=== PATIENT | male | born 1990 | race Caucasian/White ===

== ENCOUNTER 2022-04-18 14:29 | Observation (INO) ==
[2022-04-18] MEDS ORDERED: Ketorolac 30 MG/ML VIAL IVP ONE (15:00)
[2022-04-18] MEDS ORDERED: 0.9 % Sodium Chloride 1,000 ML IVC ONE (15:00)
[2022-04-18] MEDS ORDERED: Ondansetron 4 MG/2 ML VIAL IVP ONE (15:00)
[2022-04-18 15:25] LABS: Bilirubin,Urine Negative (Negative); Blood,Urine Trace (Negative); Clarity,Urine Clear (Clear); Color,Urine Colorless (Yellow); Glucose,Urine (UA) Normal (Normal); Ketones,Urine Trace mg/dL (Negative); Leukocyte Esterase,Urine Trace (Negative); Nitrite,Urine Negative (Negative); PH,Urine 6.5 pH Units (5.0-8.0); Protein,Urine Negative (Neg-Trace); RBC,Urine 0-3 per hpf (0-3); Urobilinogen,Urine Normal (Normal); WBC,Urine 0-3 per hpf (0-3)
[2022-04-18 15:34] LABS: Basophils % 0.3 %; Eosinophils % 0.1 %; Hematocrit 45.6 % (37.5-50.1); Hemoglobin 15.8 g/dL (12.9-16.9); Immature Granulocytes % 0.3 % (0-4); Lymphocytes # 1.4 K/mcL (0.6-4.6); Lymphocytes % 13.1 %; Mean Corpuscular HGB Conc 34.6 g/dL (31.6-35.5); Mean Corpuscular Hemoglobin 30.3 pg (28.0-33.3); Mean Corpuscular Volume 87.5 fL (83.0-100.0); Mean Platelet Volume 9.5 fL (9.4-12.4); Monocytes # 0.8 K/mcL (0.0-1.3); Monocytes % 7.7 %; Neutrophils # 8.5 K/mcL (1.6-8.9); Platelet Count 289 K/mcL (140-400); Red Blood Count 5.21 M/mcL (4.19-5.50); Red Cell Distribution Width 13.1 % (11.5-14.5); Segmented Neutrophils % 78.5 %; White Blood Count 10.8 K/mcL (4.3-11.1)
[2022-04-18 15:45] LABS: Alanine Aminotransferase 69 Units/L (7-52); Albumin 4.6 g/dL (3.5-5.7); Alkaline Phosphatase 97 Units/L (34-104); Aspartate Amino Transferase 37 Units/L (13-39); BUN/Creatinine Ratio 8 (6-26); Bilirubin,Total 1.2 mg/dL (0.3-1.0); Blood Urea Nitrogen 8 mg/dL (6-20); Calcium 9.8 mg/dL (8.6-10.3); Carbon Dioxide 25 mEq/L (23-29); Chloride 100 mEq/L (98-107); Glucose 127 mg/dL (70-105); Osmolality,Calculated 278 (280-300); Potassium 3.6 mEq/L (3.5-5.1); Sodium 134 mEq/L (136-145); Total Protein 7.8 g/dL (6.4-8.9)
[2022-04-18 15:46] LABS: Albumin/Globulin Ratio 1.4 (1.1-2.2); Globulin 3.2 g/dL (2.4-3.5)
[2022-04-18] MEDS ORDERED: *HR* HYDROmorphone (PF) 1 MG/ML SYRINGE IVP ONE (15:47)
[2022-04-18] MEDS ORDERED: Ibuprofen 400 MG TABLET PO PRN (16:18)
[2022-04-18] MEDS ORDERED: Ondansetron 4 MG/2 ML VIAL IVP PRN (16:18)
[2022-04-18] MEDS ORDERED: *HR* HYDROcodone/Acet 5/325 mg TABLET PO PRN (16:18)
[2022-04-18] MEDS ORDERED: Naloxone 0.4 MG/ML INJ IVP PRN (16:18)
[2022-04-18] MEDS ORDERED: *HR* HYDROmorphone 2 MG/ML SYRINGE IVP PRN (16:20)
[2022-04-18] MEDS: Ringers Solution, Lactated 1,000 ML IVC SCH (16:56)
[2022-04-18] MEDS: *HR* OxyCODONE Immed Rel 5 MG TABLET PO PRN (17:54)
[2022-04-19] MEDS: *HR* OxyCODONE Immed Rel 5 MG TABLET PO PRN (05:34)
[2022-04-19] MEDS ORDERED: *HR* Enoxaparin 40 MG/0.4 ML SYRINGE SQ SCH (06:00)
[2022-04-19] MEDS ORDERED: Iopamidol - 300 50 ML VIAL ONE (07:24)
[2022-04-19] MEDS ORDERED: *HR* FentaNYL (PF) 100 MCG/2 ML VIAL ONE (07:25)
[2022-04-19] MEDS ORDERED: Lidocaine -MPF 2% 2 ML VIAL ONE (07:25)
[2022-04-19] MEDS ORDERED: *HR* Propofol 200 MG/20 ML VIAL IVP ONE (07:25)
[2022-04-19] MEDS ORDERED: *HR* Midazolam HCl 2 MG/2 ML VIAL ONE (07:25)
[2022-04-19] MEDS ORDERED: Ondansetron 4 MG/2 ML VIAL ONE (07:25)
[2022-04-19] MEDS ORDERED: CeFAZolin Syr 2,000MG/20 ML 2,000 MG/20 ML SYRINGE IVPB ONE (07:30)
[2022-04-19] MEDS ORDERED: *HR* HYDROmorphone (PF) 1 MG/ML SYRINGE IVP PRN (07:43)
[2022-04-19] MEDS ORDERED: Ketorolac 30 MG/ML VIAL IVP PRN (07:43)
[2022-04-19] MEDS ORDERED: Promethazine 6.25 MG in Water for inj. (sterile) 20 ML IVPB PRN (07:43)
[2022-04-19] MEDS ORDERED: Acetaminophen IV 1,000 MG/100 ML BAG IVPB ONE (07:43)
[2022-04-19] MEDS ORDERED: *HR* Labetalol 20 MG/4 ML SYRINGE IVP PRN (07:43)
[2022-04-19] MEDS ORDERED: *HR* OxyCODONE Immed Rel 5 MG TABLET PO PRN ×2 (07:43→09:02)
[2022-04-19] MEDS ORDERED: Ondansetron 4 MG/2 ML VIAL IVP PRN ×2 (07:43→09:02)
[2022-04-19] MEDS ORDERED: *HR* HYDROmorphone 2 MG TABLET PO PRN (07:43)
[2022-04-19] MEDS ORDERED: Famotidine 20 MG/2 ML VIAL IVP ONE (07:43)
[2022-04-19] MEDS: Ringers Solution, Lactated 1,000 ML IVC SCH (07:45)
[2022-04-19] MEDS ORDERED: Ketorolac 30 MG/ML VIAL ONE (08:09)
[2022-04-19] MEDS ORDERED: *HR* HYDROcodone/Acet 5/325 mg TABLET PO PRN (09:02)
[2022-04-19] MEDS ORDERED: Ibuprofen 400 MG TABLET PO PRN (09:02)
[2022-04-19] MEDS ORDERED: Ringers Solution, Lactated 1,000 ML IVC SCH (09:02)
[2022-04-19] MEDS ORDERED: *HR* HYDROmorphone 2 MG/ML SYRINGE IVP PRN (09:02)
[2022-04-19] MEDS ORDERED: Flu Vac QV 22-23 (6MOS UP)/PF 0.5 ML SYRINGE IM ONE (09:43)
[2022-04-19] MEDS ORDERED: Moderna COVID-19 Vac ,BIVALENT BOOSTER 50 MCG/0.5 ML VIAL IM ONE (09:55)
[2022-04-19 10:02] VITALS: O2SAT 96
[2022-04-19 11:02] VITALS: BP 128/84; PULSE 98; TEMP 98.3
[2022-04-20] MEDS ORDERED: *HR* Enoxaparin 40 MG/0.4 ML SYRINGE SQ SCH (06:00)
== END 2022-04-19 11:41 | disposition home or self-care (01) ==
LOC: EMEROOARM 14:29 → 3ANU 14:29
PROVIDERS: ADMIT Internal Medicine; ATTEND Internal Medicine